=== PATIENT | female | born 1985 | race Caucasian/White ===

== ENCOUNTER → 2016-03-05 | Outpatient (CLI) | payer OTHER ==
[~2016-03-05] MED LIST: AMOX875T PO; BCPILLS PO; CLC100X PO; CRAN1CAP15 PO; KRV28 PO; ONDA4TAB10 SL; SULF800T23 PO
== END | disposition home or self-care (01) ==
LOC: C.PAPS 14:13
PROVIDERS: ATTEND Obstetrics & Gynecology
DX: Z12.4 Encounter for screening for malignant neoplasm of cervix (principal)

== ENCOUNTER → 2016-03-05 | Outpatient (CLI) | payer OTHER ==
[2016-03-07 01:55] LABS: CHLAMYDIA TRACH RNA*** NOT DETECTED (NOT DETECTED); GC (NEIS GONORRHOEAE)RNA** NOT DETECTED (NOT DETECTED)
== END | disposition home or self-care (01) ==
LOC: C.LABSPEC 11:40
PROVIDERS: ATTEND Obstetrics & Gynecology
DX: Z11.3 Encounter for screening for infections with a predominantly sexual mode of transmission (principal)

== ENCOUNTER → 2016-05-19 | Outpatient (CLI) | payer OTHER | END | disposition home or self-care (01) | LOC: C.LABPVFM 07:29 | PROVIDERS: ATTEND Nurse Practitioner | DX: R50.9 Fever, unspecified (principal) ==

== ENCOUNTER 2016-06-12 07:12 | Emergency (ER) | payer OTHER ==
[~2016-06-12 07:12] MED LIST changes: -AMOX875T PO; -BCPILLS PO; -ONDA4TAB10 SL; -SULF800T23 PO
[2016-06-12 07:21] VITALS: Ht 175.3 cm
[2016-06-12] MEDS ORDERED: SODIUM CHLORIDE 0.9% 1000ML 1,000 ML IV STA ×3 (07:39→10:04)
[2016-06-12] MEDS ORDERED: BCPILLS PO (07:43)
[2016-06-12 07:49] LABS: BASO % 0.3 %; BASO ABS # 0.03 K/uL (0-0.2); COMPLETE YES; EOS % 1.8 %; HEMATOCRIT 42.5 % (37-47); IG% 0.3 %; LYMPH % 18.1 %; LYMPH ABS # 2.02 K/uL (1.2-3.4); MEAN CELL VOLUME 89.1 fL (80-100); MEAN CORPUSCULAR HEMOGLOBIN 30.8 pg (25-34); MEAN CORPUSCULAR HGB CONC 34.6 g/dl (32-36); MEAN PLATELET VOLUME 11.1 fL (7.4-10.4); MONO % 8.3 %; NEUT % 71.2 %; PLATELET COUNT 259 K/uL (130-400); RED BLOOD COUNT 4.77 M/uL (4.2-5.4); WHITE BLOOD COUNT 11.14 K/uL (4.8-10.8)
--- NOTE | 2016-06-12 07:53 | EMERGENCY ROOM VISIT NOTE ---
History First contact with patient: 07:21 Chief Complaint: BACK PAIN Stated Complaint: BACK PAIN,ABD PAIN History of Present Illness The patient is a 30 year old female who presents to the Emergency Room with complaints of flank and abdominal pain. The patient states that she has had urinary symptoms the last 2 days. She states that this morning around 1:45 AM she developed a sharp pain rated 10/10 in the bilateral flanks. The patient states that she feels better standing or leaning over and is worse laying flat. She reports nausea. She denies any vomiting. She has not had a bowel movement for one week. She reports urinary frequency, dysuria, urgency. She denies any vaginal bleeding or discharge. She denies any fevers. She denies any chest pain or trouble breathing. She has a history of recurrent urinary tract infections. She denies history of kidney stones. Review of Systems A 10 system review of systems was completed with positives and pertinent negatives listed in the HPI. Past Medical/Surgical History Medical Problems: (1) Endometriosis Social History Smoking Status: Never Smoker Housing Status: lives with family Current/Historical Medications Scheduled Amoxicillin & Pot Clavulanate (Augmentin 875-125 mg), 1 TAB PO BID Control Pills ( Control Pills), 1 TAB PO DAILY Ondasetron Odt (Zofran Odt), 4 MG SL Q6H Sulfa/Trimethoprim (Bactrim Ds 800MG/160MG), 1 TAB PO BID Allergies Coded Allergies: Gadolinium (Unverified Allergy, Intermediate, FACE SWELLS, THROAT CLOSES. , 06/12/16) [facility] [employer] [employer] Gadolinium Derivatives (Unverified Allergy, Intermediate, FACE SWELLS, THROAT CLOSES, 06/12/16) [facility] [employer] Chlorine (Verified Allergy, Mild, SKIN IRRITATION TO BLEACH, 04/05/09) Uncoded Allergies: IODINATED CONTRAST MEDIA (Allergy, Mild, FACE SWELLS, THROAT CLOSES, ) MRI DYE Physical Exam Vital Signs Date Time Temp Pulse Resp B/P Pulse Ox O2 Delivery O2 Flow Rate FiO2 06/12/16 11:44 36.6 80 16 115/77 97 06/12/16 10:56 80 16 115/77 97 Room Air 06/12/16 09:13 80 16 129/71 98 Room Air 06/12/16 07:21 36.6 78 16 151/92 96 Room Air Physical Exam VITALS: Vitals are noted on the nurse's note and reviewed by myself. Vital signs stable. The patient is afebrile. GENERAL: This is a 30-year-old female who appears to be uncomfortable and in pain, in no acute distress, nondiaphoretic, well-developed well-nourished. SKIN: The skin was without rashes, erythema, edema, or bruising. There is no tenting of the skin. Capillary reflex less than 2 seconds. HEAD: Normocephalic atraumatic. EARS: External auditory canals clear, tympanic membranes pearly dumont without erythema or effusion bilaterally. EYES: Pupils equal round and reactive to light and accommodation. Conjunctivae without injection, sclerae without icterus. Extraocular movements intact. NOSE: Patent, turbinates without inflammation or discharge. MOUTH: Mucous membranes moist. Tonsils are not enlarged. Pharynx without erythema or exudate. Uvula midline. Airway patent. Tongue does not deviate. NECK: Supple without nuchal rigidity. No lymphadenopathy. No thyromegaly. Cervical spine is nontender. No JVD. HEART: Regular rate and rhythm without murmurs gallops or rubs. LUNGS: Clear to auscultation bilaterally without wheezes, rales or rhonchi. No retractions or accessory muscle use. ABDOMEN: Positive bowel sounds x 4. Soft, mild diffuse lower abdominal tenderness, without masses or organomegaly. There is marked bilateral CVA tenderness. The patient is unable to lay flat for a full abdominal examination. MUSCULOSKELETAL: No muscle atrophy, erythema, or edema noted. Full range of motion in all extremities.Normal gait. Strength 5/5 throughout. NEURO: Patient was alert and oriented to person place and time. No focal neurological deficits. Medical Decision & Procedures ER Provider Diagnostic Interpretation: ABDOMEN AND PELVIS CT WITHOUT CONTRAST CT DOSE: 575.08 mGycm HISTORY: Flank pain. Abdominal pain. flank pain TECHNIQUE: Multiaxial CT images of the abdomen and pelvis were performed without the use of intravenous and oral contrast according to the standard department stone protocol. COMPARISON STUDY: None. FINDINGS: Lung bases are clear. Liver spleen and pancreas are unremarkable. Kidneys negative for calcification or hydronephrosis. Bladder is midline. No evidence for bladder calcifications. No evidence for hydronephrosis or obstructive change. Nonobstructive bowel pattern. Normal appendix. IMPRESSION: Negative study Laboratory Results 06/12/16 07:30 Red Blood Count 4.77, Mean Corpuscular Volume 89.1, Mean Corpuscular Hemoglobin 30.8, Mean Corpuscular Hemoglobin Concent 34.6, Mean Platelet Volume 11.1, Neutrophils (%) (Auto) 71.2, Lymphocytes (%) (Auto) 18.1, Monocytes (%) (Auto) 8.3, Eosinophils (%) (Auto) 1.8, Basophils (%) (Auto) 0.3, Neutrophils # (Auto) 7.93, Lymphocytes # (Auto) 2.02, Monocytes # (Auto) 0.93, Eosinophils # (Auto) 0.20, Basophils # (Auto) 0.03 06/12/16 07:30 Test 06/12/16 07:20 06/12/16 07:30 06/12/16 08:25 Urine Color YELLOW Urine Appearance CLEAR (CLEAR) Urine pH >= 9.0 (4.5-7.5) Urine Specific [place] 1.008 (1.000-1.030) Urine Protein TRACE (NEG) Urine Glucose (UA) NEG (NEG) Urine Ketones NEG (NEG) Urine Occult Blood 3+ (NEG) Urine Nitrite NEG (NEG) Urine Bilirubin NEG (NEG) Urine Urobilinogen NEG (NEG) Urine Leukocyte Esterase MODERATE (NEG) Urine WBC (Auto) >30 /hpf (0-5) Urine RBC (Auto) >30 /hpf (0-4) Urine Hyaline Casts (Auto) 1-5 /lpf (0-5) Urine Epithelial Cells (Auto) 20-30 /lpf (0-5) Urine Bacteria (Auto) 1+ (NEG) Urine Yeast (Auto) (NONE PRSENT) Urine Test NEG (NEG) White Blood Count 11.14 K/uL (4.8-10.8) Red Blood Count 4.77 M/uL (4.2-5.4) Hemoglobin 14.7 g/dL (12.0-16.0) Hematocrit 42.5 % (37-47) Mean Corpuscular Volume 89.1 fL (80-100) Mean Corpuscular Hemoglobin 30.8 pg (25-34) Mean Corpuscular Hemoglobin Concent 34.6 g/dl (32-36) Platelet Count 259 K/uL (130-400) Mean Platelet Volume 11.1 fL (7.4-10.4) Neutrophils (%) (Auto) 71.2 % Lymphocytes (%) (Auto) 18.1 % Monocytes (%) (Auto) 8.3 % Eosinophils (%) (Auto) 1.8 % Basophils (%) (Auto) 0.3 % Neutrophils # (Auto) 7.93 K/uL (1.4-6.5) Lymphocytes # (Auto) 2.02 K/uL (1.2-3.4) Monocytes # (Auto) 0.93 K/uL (0.11-0.59) Eosinophils # (Auto) 0.20 K/uL (0-0.5) Basophils # (Auto) 0.03 K/uL (0-0.2) RDW Standard Deviation 42.5 fL (36.4-46.3) RDW Coefficient of Variation 13.1 % (11.5-14.5) Immature Granulocyte % (Auto) 0.3 % Immature Granulocyte # (Auto) 0.03 K/uL (0.00-0.02) Anion Gap 13.0 mmol/L (3-11) Estimated GFR () 86.3 Estimated GFR (Non- 74.5 BUN/Creatinine Ratio 7.2 (10-20) Calcium Level 9.8 mg/dl (8.5-10.1) Total Bilirubin 1.4 mg/dl (0.2-1) Aspartate Amino Transf (AST/SGOT) 13 U/L (15-37) Alanine Aminotransferase (ALT/SGPT) 16 U/L (12-78) Alkaline Phosphatase 101 U/L (45-117) Total Protein 8.6 gm/dl (6.4-8.2) Albumin 4.3 gm/dl (3.4-5.0) Globulin 4.3 gm/dl (2.5-4.0) Albumin/Globulin Ratio 1.0 (0.9-2) Lipase 100 U/L (73-393) Human Chorionic Gonadotropin, Qual NEG (NEG) Lactic Acid Level 2.5 mmol/L (0.4-2.0) Medications Administered Medications (Trade) Dose Ordered Sig/Francesco Route Start Time Stop Time Status Last Admin Dose Admin Sodium Chloride 1,000 ml @ 999 mls/hr Q1H1M STAT IV 06/12/16 07:39 06/12/16 08:39 DC 06/12/16 07:39 999 MLS/HR Acetaminophen 1000 mg/Empty Bag 100 ml @ 400 mls/hr ONE STAT IV 06/12/16 08:00 06/12/16 08:14 DC 06/12/16 08:00 400 MLS/HR Sodium Chloride 1,000 ml @ 999 mls/hr Q1H1M STAT IV 06/12/16 10:04 06/12/16 11:04 DC 06/12/16 10:51 999 MLS/HR Sodium Chloride (Nss 1000ml) 1,000 ml @ 999 mls/hr Q1H1M STAT IV 06/12/16 10:04 06/12/16 11:04 DC 06/12/16 10:51 999 MLS/HR Ceftriaxone Sodium (Rocephin Inj) 1 gm NOW STAT IV 06/12/16 10:18 06/12/16 10:20 DC 06/12/16 10:50 1 GM Trimethoprim/ Sulfamethoxazole (Septra Ds 800/ 160MG Tab) 1 tab NOW ONCE PO 06/12/16 10:30 06/12/16 10:32 DC 06/12/16 10:50 1 TAB ED Course The patient was seen and examined. Previous visits were reviewed. The patient does not have a fever. She does have a leukocytosis of 11.14. She does not have any significant electrolyte abnormality. Lactic acid was slightly elevated at 2.5. Lipase was not elevated. Serum hCG was negative. Urinalysis suggests urinary tract infection and a culture is pending. CT scan of abdomen and pelvis does not reveal any acute abnormality The patient was hydrated with normal saline 3 L She was given 1 g IV Tylenol with good improvement in her pain She was given 1 g IV Rocephin and 1 oral Bactrim DS The patient appears to have pyelonephritis and potentially early sepsis. I did recommend that the patient stay in the hospital and initially planned to order daptomycin and Zosyn. The patient is very adamant that she does not want to stay in the hospital. She states she would like to try treatment as an outpatient and will return if she has no improvement or is worsening. She will be placed on Augmentin and Bactrim. The patient did not wish to have any narcotic pain medication as she has a history of drug use. She was advised to return immediately with any worsening symptoms. The case was discussed with Dr. Graham who agrees with the assessment and treatment plan. Medical Decision DIFFERENTIAL DIAGNOSIS: Hepatitis, cholecystitis, cholangitis, biliary colic, pancreatitis, pneumonia, subdiaphragmatic abscess, appendicitis, inguinal hernia , nephrolithiasis, inflammatory bowel disease, mesenteric adenitis, peptic ulcer disease, GERD, gastritis, pancreatitis, myocardial infarction, pericarditis, ruptured aortic aneurysm, appendicitis, gastroenteritis, bowel obstruction, splenic infarct, diverticulitis, mesenteric ischemia, metabolic, peritonitis, among others. Impression Primary Impression: Pyelonephritis Departure Information Dispostion Home / Self-Care Condition GOOD Prescriptions Ondasetron Odt (ZOFRAN ODT) 4 Mg Tab 4 MG SL Q6H for Nausea, #20 TAB Prov: Annika Mills PA-C 06/12/16 Sulfa/Trimethoprim (Bactrim Ds 800MG/160MG) Tab 1 TAB PO BID for 7 Days, #14 TAB Prov: Annika Mills PA-C 06/12/16 Amoxicillin & Pot Clavulanate (Augmentin 875-125 mg) 1 Tab Tab 1 TAB PO BID for 7 Days, #14 TAB Prov: Annika Mills PA-C 06/12/16 Referrals No Doctor, Assigned (PCP) Patient Instructions My [facility], Pyelonephritis - [facility] Additional Instructions Take the antibiotics as prescribed, until finished Zofran as prescribed, as needed for nausea Increase fluids Motrin 600 mg every 6-8 hours for moderate pain Return immediately if not feeling better in 24-48 hours or if you have any worsening symptoms, fevers Otherwise, recheck with your family doctor next week
[2016-06-12 08:00] LABS: URINE APPEARANCE CLEAR (CLEAR); URINE BILIRUBIN NEG (NEG); URINE COLOR YELLOW; URINE EPITHELIAL CELL AUTO 20-30 /lpf (0-5); URINE NITRITE NEG (NEG); URINE PH >= 9.0 (4.5-7.5); URINE SPECIFIC GRAVITY 1.008 (1.000-1.030); UROBILINOGEN NEG (NEG); ZZUR CULT IF INDIC CLEAN CATCH YES
[2016-06-12] MEDS ORDERED: ACETAMINOPHEN IV 1,000 MG in EMPTY BAG 0 ML IV STA (08:00)
[2016-06-12 08:09] LABS: ALT/SGPT 16 U/L (12-78); BLOOD UREA NITROGEN 7 mg/dl (7-18); BUN/CREATININE RATIO 7.2 (10-20); CARBON DIOXIDE 21 mmol/L (21-32); CHLORIDE 106 mmol/L (98-107); GLUCOSE 92 mg/dl (70-99); POTASSIUM 3.4 mmol/L (3.5-5.1); SODIUM 140 mmol/L (136-145)
[2016-06-12 08:09] LABS: MANUAL MICROSCOPIC REQUIRED? NO; REVIEW REQ? YES; SULFASALICYLIC ACID POS (NEG)
[2016-06-12 08:12] LABS: ALKALINE PHOSPHATASE 101 U/L (45-117); AST/SGOT 13 U/L (15-37)
[2016-06-12 08:21] LABS: PREG INTERNAL NEGATIVE QC NEG CLEAR BACKGROUND; PREG INTERNAL POSITIVE QC POS CONTROL LINE
[2016-06-12 08:32] LABS: CALCIUM 9.8 mg/dl (8.5-10.1)
--- NOTE | 2016-06-12 08:56 | DIAGNOSTIC IMAGING REPORT ---
ABDOMEN AND PELVIS CT WITHOUT CONTRAST CT DOSE: 575.08 mGycm HISTORY: Flank pain. Abdominal pain. flank pain TECHNIQUE: Multiaxial CT images of the abdomen and pelvis were performed without the use of intravenous and oral contrast according to the standard department stone protocol. COMPARISON STUDY: None. FINDINGS: Lung bases are clear. Liver spleen and pancreas are unremarkable. Kidneys negative for calcification or hydronephrosis. Bladder is midline. No evidence for bladder calcifications. No evidence for hydronephrosis or obstructive change. Nonobstructive bowel pattern. Normal appendix. IMPRESSION: Negative study Electronically signed by: Jesse Rose M.D. 06/12/2016 8:54 AM Dictated Date/Time: 06/12/2016 8:52 AM
[2016-06-12] MEDS ORDERED: PIPERACILLIN/TAZOBACTAM 3.375 GM/100ML D5W IV STA (10:04)
[2016-06-12] MEDS ORDERED: CEFTRIAXONE SOD INJ 1 GM ADDVIAL IV STA (10:18)
[2016-06-12] MEDS ORDERED: SULFAMETHOXAZOLE/TRIMETHOPRIM DS 800/160MG TAB PO ONE (10:30)
[2016-06-12] MEDS ORDERED: SULF800T23 PO (10:40)
[2016-06-12] MEDS ORDERED: AMOX875T PO (10:40)
[2016-06-12] MEDS ORDERED: ONDA4TAB10 SL (10:42)
[2016-06-12 11:44] VITALS: BP 115/77; PULSE 80; TEMP 36.6; O2SAT 97
--- NOTE | 2016-06-15 11:35 | Pharmacy Progress Note ---
ED Pharmacist Culture FollowUp Date of Service: Jun 15, 2016. Patient was seen in the ER on 06/12 for abd pain, b/l flank pain, and urinary symptoms. She was dx with pyelonephritis possible early sepsis and discharged on Augmentin 875mg BID x 7 days + Bactrim DS 1 PO BID x 7 days as the patient refused hospitalization. Today the patient's urine cx is growing staph saprophyticus, only resistant to oxacillin. The Bactrim DS should adequately cover this organism. No further action required.
== END 2016-06-12 11:46 | disposition home or self-care (01) ==
LOC: C.EDB 07:13
DX: N12 Tubulo-interstitial nephritis, not specified as acute or chronic (principal); N80.9 Endometriosis, unspecified; Z79.3 Long term (current) use of hormonal contraceptives; Z87.440 Personal history of urinary (tract) infections

== ENCOUNTER → 2016-06-23 | Outpatient (CLI) | payer OTHER ==
[~2016-06-23] MED LIST changes: +BCPILLS PO; -CLC100X PO; -CRAN1CAP15 PO; -KRV28 PO; +ONDA4TAB10 SL
[2016-06-23 17:56] LABS: URINE EPITHELIAL CELL AUTO >30 /lpf (0-5); ZZInitiateTest Complete
[2016-06-23 18:00] LABS: MANUAL MICROSCOPIC REQUIRED? NO; REVIEW REQ? NO
== END | disposition home or self-care (01) ==
LOC: C.LABPVFM 07:51
PROVIDERS: ATTEND Family Medicine
DX: N39.0 Urinary tract infection, site not specified (principal)

== ENCOUNTER → 2016-07-08 | Outpatient (CLI) | payer OTHER | END | disposition home or self-care (01) | LOC: C.LABPVFM 11:06 | PROVIDERS: ATTEND Family Medicine | DX: N12 Tubulo-interstitial nephritis, not specified as acute or chronic (principal) ==

== ENCOUNTER → 2016-07-28 | Outpatient (CLI) | payer OTHER | END | disposition home or self-care (01) | LOC: C.PATHSPEC 17:11 | PROVIDERS: ATTEND Nurse Practitioner Family | DX: R31.29 Other microscopic hematuria (principal) ==

== ENCOUNTER → 2017-05-03 | Outpatient (CLI) | payer OTHER ==
[~2017-05-03] MED LIST changes: -ONDA4TAB10 SL
== END | disposition home or self-care (01) ==
LOC: C.PATHSPEC 11:18
PROVIDERS: ATTEND Urology
DX: R31.29 Other microscopic hematuria (principal)

== ENCOUNTER → 2017-05-17 | Outpatient (CLI) | payer OTHER | END | disposition home or self-care (01) | LOC: C.LABSPEC 17:28 | PROVIDERS: ATTEND Obstetrics & Gynecology | DX: Z34.81 Encounter for supervision of other normal pregnancy, first trimester (principal) ==

== ENCOUNTER → 2017-05-24 | Outpatient (CLI) | payer OTHER ==
[2017-05-24 15:51] LABS: BASO % 0.5 %; BASO ABS # 0.04 K/uL (0-0.2); EOS % 2.2 %; EOS ABS # 0.17 K/uL (0-0.5); HEMATOCRIT 37.3 % (37-47); HEMOGLOBIN 12.6 g/dL (12.0-16.0); IG# 0.03 K/uL (0.00-0.02); LYMPH % 21.9 %; LYMPH ABS # 1.66 K/uL (1.2-3.4); MEAN CELL VOLUME 91.2 fL (80-100); MEAN CORPUSCULAR HEMOGLOBIN 30.8 pg (25-34); MEAN CORPUSCULAR HGB CONC 33.8 g/dl (32-36); MONO ABS # 0.83 K/uL (0.11-0.59); NEUT ABS # 4.84 K/uL (1.4-6.5); PLATELET COUNT 228 K/uL (130-400); RED CELL DISTRIBUTION WIDTH CV 12.8 % (11.5-14.5); WHITE BLOOD COUNT 7.57 K/uL (4.8-10.8)
== END | disposition home or self-care (01) ==
LOC: C.LAB1850 15:08
PROVIDERS: ATTEND Obstetrics & Gynecology
DX: Z34.81 Encounter for supervision of other normal pregnancy, first trimester (principal)

== ENCOUNTER → 2017-06-21 | Outpatient (CLI) | payer OTHER | LOC: C.LABSPEC 17:39 | PROVIDERS: ATTEND Obstetrics & Gynecology | DX: N39.0 Urinary tract infection, site not specified (principal) ==

== ENCOUNTER → 2017-06-28 | Outpatient (CLI) | payer OTHER | END | disposition home or self-care (01) | LOC: C.LAB1850 15:00 | PROVIDERS: ATTEND Obstetrics & Gynecology | DX: Z34.82 Encounter for supervision of other normal pregnancy, second trimester (principal) ==

== ENCOUNTER → 2017-10-06 | Outpatient (CLI) | payer OTHER | END | disposition home or self-care (01) | LOC: C.LABPVFM 16:23 | PROVIDERS: ATTEND Family Medicine | DX: O23.40 Unspecified infection of urinary tract in pregnancy, unspecified trimester (principal); Z3A.00 Weeks of gestation of pregnancy not specified ==